=== PATIENT | female | born 1945 | race Caucasian/White ===

== ENCOUNTER 2016-09-19 07:45 | Day surgery (SDC) | payer MEDICARE ==
[~2016-09-19 07:45] MED LIST: Lactated Ringers 1,000 ML IV ONE; XYLOCAINE 1% HCL 20 ML MDV ONE
[2016-09-19] MEDS ORDERED: Lactated Ringers 1,000 ML IV SCH (09:00)
[2016-09-19] MEDS ORDERED: CEFAZOLIN 2 GM-D5W BAG** 2 GM/50 ML ML IV ONE (10:28)
[2016-09-19 15:03] VITALS: O2SAT 97
[2016-09-19 15:05] VITALS: BP 131/74; PULSE 51
[2016-09-19] MEDS ORDERED: Versed 2 MG/2 ML Injection IV ONE (15:30)
[2016-09-19] MEDS ORDERED: Ketamine HCl 50 MG/ML IV ONE (15:30)
[2016-09-19] MEDS ORDERED: DIPRIVAN 200 MG/20 ML IV ONE (15:30)
--- NOTE | 2016-09-20 08:20 | OP ---
PROCEDURE DATE/TIME: 09/19/2016 1015 PREOPERATIVE DIAGNOSES: 1) Right shoulder skin lesion. 2) Left shoulder skin lesion. 3) Left posterior hip skin lesion. 4) Mid back skin lesion. 5) Right back skin lesion. 6) Upper back skin lesion. POSTOPERATIVE DIAGNOSES: 1) Right shoulder skin lesion. 2) Left shoulder skin lesion. 3) Left posterior hip skin lesion. 4) Mid back skin lesion. 5) Right back skin lesion. 6) Upper back skin lesion. PROCEDURES: 1) Excision right shoulder skin lesion approximately 2.5 x 1 cm. 2) Excision left shoulder skin lesion approximately 2 x 1 cm. 3) Excision left posterior hip skin lesion approximately 1.5 x 1 cm. 4) Excision mid back skin lesion approximately 1 x 1 cm. 5) Excision right mid back skin lesion approximately 1 x 1 cm. 6) Excision upper back skin lesion approximately 1 x 0.5 cm. PROCEDURE PERFORMED BY: Keli Hobson M.D. COMPLICATIONS: None. ESTIMATED BLOOD LOSS: Minimal. ANESTHESIA: MAC. SPECIMENS: 1) Right shoulder skin lesion suture at 12:00. 2) Left shoulder skin lesion suture at 12:00. 3) Left posterior hip skin lesion sutures at 12:00. 4) Mid back skin lesion. 5) Right back skin lesion. 6) Upper back skin lesion. PROCEDURE DETAILS: This is a 71 year-old female who presented with multiple skin lesions which have changed and are concerning and she elected for excision. All risks, benefits, alternatives regarding the procedure have been discussed with the patient in detail. She understands and she agrees to proceed. DESCRIPTION OF PROCEDURE: The patient was seen in the preoperative area. Each lesion was marked with the patient awake and alert. These were circled and then she was brought back to the operative suite. She does have a history of melanoma. The patient was first positioned supine. She was prepped and draped in the usual sterile fashion after a complete time out was performed. We confirmed our markings. We then excised the right shoulder lesion and the skin in the left shoulder lesion of the skin in the same fashion making an elliptical incision encompassing the entirety of the lesion with a very small 3 mm margin on either side. The incisions were taken down through skin into the subcutaneous tissue and the lesions were completely removed with good gross margins. The lesions were both marked at the 12:00 position. The right shoulder lesion was sent as "Right shoulder skin lesion suture at 12:00" and the left shoulder lesion was sent as "Left shoulder skin lesion suture at 12:00" and each of these sites were closed with a vertical mattress interrupted suture using 3-0 Nylon. Both sites were hemostatic. Sterile dressings were placed. The patient was then repositioned in the right lateral decubitus position to remove the next four lesions. We reprepped the patient. We redraped the patient. We repeated our consent and verified the lesions. These were all marked with the patient awake and alert. We verified our markings and then we proceeded. We took all the lesions in the same fashion making elliptical incision around each lesion taking a small margin through skin and subcutaneous tissue. The left posterior hip skin lesion was marked with a suture at 12:00 and this was sent to pathology separately from the right shoulder and left shoulder lesion. We then excised in the same fashion the mid back, the right back and the upper back skin lesions. Each of these were also sent separately to pathology. All wounds were then closed with interrupted 3-0 Nylon suture. We had good hemostasis at each site. Sterile dressings are placed. The patient tolerated the procedure very well. There were no immediate complications. She will follow up with me in approximately one to two weeks to discuss the results of her pathology report and to get her sutures removed. I have discussed all of the results as well with the patient's family in the postoperative area.
== END 2016-09-19 13:10 | disposition home or self-care (01) ==
LOC: SDC 07:45
PROVIDERS: ATTEND Surgery
PROC: 0HBCXZZ Excision of Left Upper Arm Skin, External Approach (ICD-10-PCS; principal; 2016-09-19)
PROC: 0HBBXZZ Excision of Right Upper Arm Skin, External Approach (ICD-10-PCS; 2016-09-19)
PROC: 0HBJXZZ Excision of Left Upper Leg Skin, External Approach (ICD-10-PCS; 2016-09-19)
PROC: 0HB6XZZ Excision of Back Skin, External Approach (ICD-10-PCS; 2016-09-19)
PROC: 0HB6XZZ Excision of Back Skin, External Approach (ICD-10-PCS; 2016-09-19)
PROC: 0HB6XZZ Excision of Back Skin, External Approach (ICD-10-PCS; 2016-09-19)
DX: C44.519 Basal cell carcinoma of skin of other part of trunk (principal); L82.0 Inflamed seborrheic keratosis; D22.72 Melanocytic nevi of left lower limb, including hip; D22.5 Melanocytic nevi of trunk
CPT/HCPCS: 00300; 36415; 88305; 99100; J0690; J2250; J2704

== ENCOUNTER 2016-11-07 07:48 | Day surgery (SDC) | payer MEDICARE ==
[2016-11-07] MEDS ORDERED: Quelicin Fliptop 200 MG/10 ML IV ONE (07:49)
[2016-11-07] MEDS ORDERED: DIPRIVAN 200 MG/20 ML IV ONE (07:49)
[2016-11-07] MEDS ORDERED: Versed 2 MG/2 ML Injection IV ONE (07:49)
[2016-11-07] MEDS ORDERED: Zemuron 100 MG/10 ML IV ONE (07:49)
[2016-11-07] MEDS ORDERED: PHENYLEPHRINE HCL IV ONE (07:49)
[2016-11-07] MEDS ORDERED: SUBLIMAZE 100 MCG/2 ML IV ONE (07:49)
[2016-11-07] MEDS ORDERED: Sensorcaine 0.25% 10 ML IJ ONE (07:49)
[2016-11-07] MEDS ORDERED: Lactated Ringers 1,000 ML IV SCH (08:30)
[2016-11-07] MEDS ORDERED: Lactated Ringers 1,000 ML IV ONE (08:45)
[2016-11-07] MEDS ORDERED: Sensorcaine 0.25% 10 ML ONE (08:45)
[2016-11-07] MEDS ORDERED: KEFZOL 1 GM ONE (09:49)
--- NOTE | 2016-11-07 11:07 | OP ---
PROCEDURE DATE/TIME: 11/07/2016 0938 PREOPERATIVE DIAGNOSES: 1) Basal cell carcinoma left shoulder. 2) Abnormal skin lesion on abdomen x2. 3) Abnormal skin lesion left hip. POSTOPERATIVE DIAGNOSES: 1) Basal cell carcinoma left shoulder. 2) Abnormal skin lesion on abdomen x2. 3) Abnormal skin lesion left hip. PROCEDURES: 1) Wide excision left shoulder basal cell carcinoma suture at 12:00 lesion 3.5 x 1.5 cm. 2) Excision lesion left hip 3.5 x 1.5 cm suture at 12:00. 3) Excision abdominal wall skin lesion x2 approximately 1 x 0.5 cm. PROCEDURE PERFORMED BY: Keli Hobson M.D. COMPLICATIONS: None. ESTIMATED BLOOD LOSS: Minimal. ANESTHESIA: General. SPECIMENS: 1) Wide excision left shoulder skin lesion biopsy proven basal cell carcinoma suture at 12:00. 2) Medial abdominal wall skin lesion suture at 12:00. 3) Lateral abdominal wall skin lesion suture at 12:00. 4) Left hip skin lesion suture at 12:00. HISTORY: This is a patient who is well known to me. She has a history of melanoma and also we recently did multiple skin lesion biopsies of the skin lesions at the left shoulder. Pathology report is proven to be basal cell carcinoma with margins positive at the 9:00 border. She presents for wide excision. The site was marked with the patient awake and alert. She also has a dysplastic nevus on her left hip with nevus extending to the 9:00 margin and we are also going to resect more at this left posterior hip lesion. The site was marked with the patient awake and alert. The patient also has two more irregular skin lesions with irregular borders and dark coloration on her abdomen which we will excise at the same time. DESCRIPTION OF PROCEDURE: She was then brought back to the operative suite. Anesthesia was induced. She was prepped and draped in the usual sterile fashion. First we removed the medial abdominal wall lesion. I did also note a small lateral abdominal wall skin lesion and so I took this too while she was asleep since this did appear irregular as well on further inspection. These were taken out in entirety with an elliptical excision through skin and into subcutaneous tissue. They were irrigated, closed with buried 3-0 Vicryl and buried 4-0 Monocryl sutures, Steri-Strips and sterile dressing. Each lesion was sent separately. The first one was medial abdominal wall skin lesion and the second one was lateral abdominal wall skin lesion suture at 12:00 on both sites. We then turned our attention to the left shoulder basal cell carcinoma site. I marked borders so that there was at least 0.5 cm margin around the previous scar this was then resected in elliptical fashion through skin and subcutaneous tissues. Small flaps superior and inferiorly were raised in the subcu to allow closure. Vertical mattress nylon sutures were used in an interrupted fashion to close here. The lesion was immediately marked at 12:00 once it was excised and it was sent to pathology as left shoulder wide excision for basal cell carcinoma suture at 12:00. Sterile dressing placed here. We then resected the left hip lesion this was the site of a dysplastic nevus. We took new margins around the previous old scar making elliptical incision again through skin, subcutaneous tissue. Small flaps raised inferior and superiorly to allow closure. Site closed with vertical mattress sutures. Sterile dressing placed. Once this lesion was out we immediately marked this as well with 12:00 and this was sent separately to pathology. The patient tolerated the procedure very well. There were no immediate complications. I have discussed with her family all of the results and she is going to be following up with me as an outpatient to see the pathology results as well as for wound check.
[2016-11-07 11:54] VITALS: PULSE 57
[2016-11-07 12:12] VITALS: O2SAT 98
[2016-11-07 12:26] VITALS: BP 118/74
== END 2016-11-07 12:30 | disposition home or self-care (01) ==
LOC: SDC 07:48
PROVIDERS: ATTEND Surgery
PROC: 0HBCXZZ Excision of Left Upper Arm Skin, External Approach (ICD-10-PCS; principal; 2016-11-07)
PROC: 0HBJXZZ Excision of Left Upper Leg Skin, External Approach (ICD-10-PCS; 2016-11-07)
PROC: 0HB7XZZ Excision of Abdomen Skin, External Approach (ICD-10-PCS; 2016-11-07)
DX: C44.619 Basal cell carcinoma of skin of left upper limb, including shoulder (principal); L98.9 Disorder of the skin and subcutaneous tissue, unspecified; Z85.820 Personal history of malignant melanoma of skin
CPT/HCPCS: 00400; 36415; 88305; 99100; J0330; J0690; J2250; J2370; J2704; J3010

== ENCOUNTER 2017-10-23 10:09 | Day surgery (SDC) | payer MEDICARE ==
[2017-10-23] MEDS ORDERED: Decadron 4 MG INJ IV ONE (10:10)
[2017-10-23] MEDS ORDERED: Versed 2 MG/2 ML Injection IV ONE (10:10)
[2017-10-23] MEDS ORDERED: Zofran 4 MG/2 ML VIAL IV ONE (10:10)
[2017-10-23] MEDS ORDERED: DIPRIVAN 200 MG/20 ML IV ONE (10:10)
[2017-10-23] MEDS ORDERED: Ketamine HCl 50 MG/ML IV ONE (10:10)
[2017-10-23] MEDS ORDERED: TORAdol 30 mg Injection IV ONE (10:10)
[2017-10-23] MEDS ORDERED: Lactated Ringers 1,000 ML IV ONE ×2 (10:25→10:28)
[2017-10-23] MEDS ORDERED: Sensorcaine 0.25% 10 ML ONE (10:28)
[2017-10-23] MEDS ORDERED: Lactated Ringers 1,000 ML IV SCH (10:30)
[2017-10-23 10:47] VITALS: PULSE 58
[2017-10-23] MEDS ORDERED: XYLOCAINE 1% HCL 20 ML MDV ONE (15:03)
[2017-10-23] MEDS ORDERED: KEFZOL 1 GM ONE (16:01)
[2017-10-23 17:13] VITALS: O2SAT 98
[2017-10-23 17:25] VITALS: BP 118/75
--- NOTE | 2017-10-24 12:38 | OP ---
PROCEDURE DATE/TIME: 10/23/2017 1550 PREOPERATIVE DIAGNOSIS: Multiple back skin lesions. POSTOPERATIVE DIAGNOSIS: Multiple back skin lesions. PROCEDURE: Excision skin lesions of the back x4. Skin lesion sizes are as follows: 2 x 0.8 cm, 1.7 x 0.7 cm, 1.5 x 0.7 cm and 1.4 x 0.5 cm. PROCEDURE PERFORMED BY: Keli Hobson M.D. COMPLICATIONS: None. ESTIMATED BLOOD LOSS: Minimal. ANESTHESIA: MAC. SPECIMEN: Lower back mass 1.4 x 0.5 cm, left upper back mass 1.7 x 0.7 cm, mid back mass 1.5 x 0.7 cm and right back mass 2 x 0.8 cm. PROCEDURE DETAILS: This is a 72 year-old female with history of skin cancer. She presents for excision of multiple skin lesions that have abnormalities of her back. With her awake and alert, we marked the concerning lesions on her back. There are four total. DESCRIPTION OF PROCEDURE: She was then brought back to the operative suite. She was laid in the left lateral position. MAC anesthesia was induced. She was prepped and draped in the usual sterile fashion. We did our complete time out. We verified our markings. We then excised each of the four lesions in the same manner. We took an elliptical incision making an incision through skin down to the subcutaneous tissue and completely excising each lesion with a small margin. The lesions were all completely removed. Wounds irrigated thoroughly and closed with buried 3-0 Vicryl and interrupted 4-0 Monocryl suture. The larger site of the right back we did have to create a small flap to close it. We then placed Steri-Strips on each site and bandages. The patient tolerated the procedure very well. There were no immediate complications. We will await the pathology report. She will follow up with me in two weeks.
--- NOTE | 2017-10-24 12:48 | HP ---
HISTORY: This is a 72 year-old female who presents with multiple skin lesions on her back for excision. PAST MEDICAL/SURGICAL HISTORY: Includes previous excision for skin cancer. She has had skin cancer in the past. She also has hypertension, asthma and thyroid disease. MEDICATIONS: Medications reviewed in the chart in medication reconciliation. ALLERGIES: ALLERGIES REVIEWED. SOCIAL HISTORY: Negative. FAMILY HISTORY: Noncontributory. PHYSICAL EXAMINATION: GENERAL: No acute distress. CVS: Regular rate and rhythm. PULMONARY: Nonlabored respirations. ABDOMEN: Soft, nontender. BACK: Multiple freckles throughout the back, four concerning skin lesions which have been circled and ready for excision. EXTREMITIES: Also have freckling but no other concerning lesions. PLAN: Excision four skin lesions of the back.
== END 2017-10-23 17:27 | disposition home or self-care (01) ==
LOC: SDC 10:09
PROVIDERS: ATTEND Surgery
DX: D22.5 Melanocytic nevi of trunk (principal); L98.9 Disorder of the skin and subcutaneous tissue, unspecified; Z85.828 Personal history of other malignant neoplasm of skin; I10 Essential (primary) hypertension; J45.909 Unspecified asthma, uncomplicated; M19.90 Unspecified osteoarthritis, unspecified site; Z79.899 Other long term (current) drug therapy; E07.9 Disorder of thyroid, unspecified
CPT/HCPCS: 94250; 99100; J0690; J1100; J1885; J2250; J2405; J2704

== ENCOUNTER 2022-07-02 13:00 | Day surgery (SDC) | payer MEDICARE ==
[~2022-07-02 13:00] MED LIST changes: -Lactated Ringers 1,000 ML IV ONE
[2022-07-02] MEDS ORDERED: Lactated Ringers 1,000 ML IV ONE (13:36)
[2022-07-02] MEDS ORDERED: DIPRIVAN 200 MG/20 ML IV ONE ×2 (13:52→15:14)
[2022-07-02] MEDS ORDERED: Versed 2 MG/2 ML Injection ONE (13:52)
[2022-07-02] MEDS ORDERED: SUBLIMAZE 100 MCG/2 ML ONE (13:52)
[2022-07-02] MEDS ORDERED: Xylocaine-Mpf 2% 5 Ml Vial ONE (13:52)
[2022-07-02] MEDS ORDERED: CLINDAMYCIN-D5W 900 MG/50 ML*** 900 MG/50 ML BAG IV SCH (14:00)
[2022-07-02] MEDS ORDERED: Lactated Ringers 1,000 ML IV SCH (14:00)
[2022-07-02] MEDS ORDERED: Ephedrine Sulfate 50 MG/ML ONE (15:07)
[2022-07-02 16:26] VITALS: O2SAT 97
[2022-07-02 16:58] VITALS: BP 141/69; PULSE 77
--- NOTE | 2022-07-03 08:19 | OP ---
PROCEDURE DATE/TIME: 07/02/2022 1425 PREOPERATIVE DIAGNOSIS: Basal cell carcinoma of the upper back and right clavicular skin lesion. POSTOPERATIVE DIAGNOSIS: Basal cell carcinoma of the upper back and right clavicular skin lesion. PROCEDURES: 1) Wide excision of basal cell carcinoma of the upper back 4.7 x 2.2 cm length and width. 2) Excision of right clavicular skin lesion 3 x 1 cm length and width. PROCEDURE PERFORMED BY: Keli Hobson M.D. COMPLICATIONS: None. ESTIMATED BLOOD LOSS: Minimal less than 10 cc. ANESTHESIA: MAC. SPECIMENS: 1) Basal cell carcinoma of the upper back stitch at 12:00. 2) Right clavicular skin lesion stitch at 12:00. HISTORY: The patient presents with a history significant of multiple skin cancers including melanoma in the past. She was recently diagnosed with basal cell carcinoma and needs a wide excision. She also has another lesion of her clavicular region looks likely benign but due to her history I think it is appropriate to biopsy it and she would also like it removed anyway. Risks, benefits and alternatives have been clearly discussed with the patient and she would like to proceed. She was seen in the preoperative area. H&P and consent reviewed with her and confirmed. All questions have been answered to her satisfaction. I had clearly marked the lesions personally with the patient while awake and alert. DESCRIPTION OF PROCEDURE: She was then brought back to the operative suite. She positioned herself in a side lying right lateral decubitus position. She was then prepped and draped in the usual sterile fashion. A complete time out is performed. I encircled the lesion with a marker and marked it out 5 mm from the site to insure good margins even with shrinkage after resection and then I created an ellipse after the measurement to insure good resection margins. I sharply excised through the skin in elliptical fashion and used the Bovie cautery to take full thickness of the subcutaneous tissue. The lesion was marked prior to being removed with a stitch oriented at 12:00 and then the lesion is totally excised and sent to pathology. We raised flaps superiorly and inferiorly and the subcutaneous plane irrigated, insured hemostasis, closed with buried 3-0 Vicryl and running 4-0 subcuticular Monocryl stitch, Steri-Strips and sterile dressing. The patient tolerated the procedure well. No immediate complications. She was then repositioned. We then prepped and draped her and used a different set of instruments. We all changed our gloves and gowns. We then after prepping, draping and doing a second time out, the clavicular lesion is clearly identified by my markings. Local injected similar to the back and then we sharply excised this with a 15 blade down to the subcutaneous tissue. A portion of subcutaneous tissue was taken out to allow for appropriate re-approximation. The lesion was excised in entirety with minimal margin and then we irrigated and insured hemostasis. A very small flap superior and inferior then closed with 3-0 Vicryl, running 4-0 subcuticular Monocryl stitch, Steri-Strips and sterile dressing. The patient tolerated the procedure very well. No immediate complications. She is going to be following up with me as an outpatient. I have discussed all of her wound care instructions with her family and her nurse and they understand.
== END 2022-07-02 16:55 | disposition home or self-care (01) ==
LOC: SDC 13:00
PROVIDERS: ATTEND Surgery
DX: C44.519 Basal cell carcinoma of skin of other part of trunk (principal); L98.9 Disorder of the skin and subcutaneous tissue, unspecified
CPT/HCPCS: 99100; J2250; J2704; J3010